=== PATIENT | female | born 1995 | race Caucasian/White ===

== ENCOUNTER 2017-11-24 18:02 | Emergency (ER) | payer OTHER ==
[~2017-11-24] VITALS: Ht 160 cm; Wt 61.1 kg
[2017-11-24 18:13] VITALS: TEMP 37; Ht 160 cm; Wt 61.1 kg
[2017-11-24] MEDS ORDERED: SODIUM CHLORIDE 0.9% 1000ML 1,000 ML IV STA (20:15)
[2017-11-24] MEDS ORDERED: BCPILLS PO (20:28)
[2017-11-24 20:44] VITALS: O2SAT 98
[2017-11-24 20:46] LABS: BASO % 0.3 %; BASO ABS # 0.02 K/uL (0-0.2); EOS % 1.5 %; EOS ABS # 0.11 K/uL (0-0.5); HEMATOCRIT 40.3 % (37-47); HEMOGLOBIN 13.5 g/dL (12.0-16.0); IG# 0.01 K/uL (0.00-0.02); LYMPH % 31.7 %; LYMPH ABS # 2.39 K/uL (1.2-3.4); MEAN CELL VOLUME 82.6 fL (80-100); MEAN CORPUSCULAR HEMOGLOBIN 27.7 pg (25-34); MEAN CORPUSCULAR HGB CONC 33.5 g/dl (32-36); MONO % 6.4 %; MONO ABS # 0.48 K/uL (0.11-0.59); NEUT ABS # 4.52 K/uL (1.4-6.5); PLATELET COUNT 265 K/uL (130-400); RED CELL DISTRIBUTION WIDTH CV 13.8 % (11.5-14.5); RED CELL DISTRIBUTION WIDTH SD 41.8 fL (36.4-46.3); WHITE BLOOD COUNT 7.53 K/uL (4.8-10.8)
[2017-11-24 21:06] LABS: BLOOD UREA NITROGEN 19 mg/dl (7-18); CALCIUM 9.2 mg/dl (8.5-10.1); CARBON DIOXIDE 25 mmol/L (21-32); CREATININE 0.64 mg/dl (0.60-1.20); GLUCOSE 80 mg/dl (70-99); POTASSIUM 3.8 mmol/L (3.5-5.1); SODIUM 135 mmol/L (136-145)
--- NOTE | 2017-11-24 21:10 | DIAGNOSTIC IMAGING REPORT ---
CHEST ONE VIEW PORTABLE CLINICAL HISTORY: Chest pain. COMPARISON STUDY: No previous studies for comparison. FINDINGS: Lung volumes are normal. There is no pneumothorax or pleural effusion. There is no consolidation. Cardiomediastinal silhouette is normal. Pulmonary vascularity is normal. IMPRESSION: No acute cardiopulmonary findings. Electronically signed by: Dougie Kwok M.D. 11/24/2017 9:08 PM Dictated Date/Time: 11/24/2017 9:08 PM
[2017-11-24] MEDS ORDERED: OPTIRAY 320 IV PRN (21:15)
--- NOTE | 2017-11-24 21:53 | DIAGNOSTIC IMAGING REPORT ---
CT ANGIOGRAPHY OF THE CHEST, PULMONARY EMBOLUS PROTOCOL CLINICAL HISTORY: Elevated d-dimer. Chest pain. COMPARISON STUDY: Chest radiograph performed earlier today. TECHNIQUE: Following IV administration of 94 mL of Optiray-320, helical axial images of the chest were obtained utilizing the pulmonary embolus protocol. Maximal intensity projections and sagittal and coronal reformats were viewed on an independent 3D workstation. IV contrast was administered without complication. A dose lowering technique was utilized adhering to the principles of ALARA. CT DOSE: 218.54 mGy.cm FINDINGS: No pulmonary emboli are identified although the segmental and subsegmental pulmonary arteries are suboptimally assessed due to respiratory motion. There is no thoracic aortic dissection. The size the heart is normal. There is no pericardial effusion. There are no enlarged thoracic lymph nodes. Central airways are patent. There is no consolidation. A few small left lower lobe nodules measure up to 3 mm. No pneumothorax or pleural effusion is noted. Central airways are patent. Bony thorax and upper abdomen are unremarkable. IMPRESSION: 1. No pulmonary emboli identified although segmental and subsegmental pulmonary arteries suboptimally assessed due to respiratory motion. 2. No consolidation. 3. A few tiny left lower lobe nodules which measure up to 3 mm. These are low suspicion and could reflect a mild infectious bronchiolitis. Electronically signed by: Dougie Kwok M.D. 11/24/2017 9:51 PM Dictated Date/Time: 11/24/2017 9:44 PM
--- NOTE | 2017-11-24 22:43 | EMERGENCY ROOM VISIT NOTE ---
History Report prepared by Jonathan: Shweta Fuller Under the Supervision of: Dr. Angelo Desir M.D. First contact with patient: 19:52 Chief Complaint: ABNORMAL LABS Stated Complaint: ABNORMAL LAB RESULTS,POSSIBLE BLOOD CLOT History of Present Illness The patient is a 22 year old female who presents to the Emergency Room with complaints of an episode of abnormal labs earlier today. The patient was sent to the ED after being found to have an elevated D dimer. She had gone to [facility] today because her heart rate is fast when she exercises. She has been experiencing this for a long time, but just decided to go to [facility] today. She also had a thyroid test at [facility] which was not concerning. She is not having any palpitations at rest. She denies any SOB, nausea, vomiting, leg swelling, abdominal pain, fever, chills, cough, or congestion. She has a history of ulcerative colitis. She is not having any problems with her UC currently. She traveled to [place] and back in the past week. The flights were 3 hours each. She denies any recent alcohol use. She denies any history of blood clots. She denies any family history of heart attacks at a young age. Source of History: patient Onset: earlier today Position: other (abnormal labs) Quality: other (elevated D dimer) Timing: other (episodic) Associated Symptoms: No fevers, No chills, No cough, No SOB, No nausea, No vomiting, No abdominal pain Review of Systems See HPI for pertinent positives and negatives. A total of ten systems were reviewed and were otherwise negative. Past Medical & Surgical Medical Problems: (1) Ulcerative colitis Family History Heart disease Hypertension No family history of heart attacks at a young age. Social History Smoking Status: Current Some Day Smoker Occupation Status: [employer] student Current/Historical Medications Scheduled Control Pills ( Control Pills), 1 TAB PO DAILY Allergies Coded Allergies: No Known Allergies (Unverified , 11/24/17) Physical Exam Vital Signs Date Time Temp Pulse Resp B/P (MAP) Pulse Ox O2 Delivery O2 Flow Rate FiO2 11/24/17 23:01 78 18 116/72 98 11/24/17 21:48 77 16 114/74 100 Room Air 11/24/17 21:00 75 16 110/65 98 Room Air NIBP 11/24/17 20:50 80 3/13/18 20:44 98 Room Air 11/24/17 19:50 65 18 124/76 100 Room Air 11/24/17 18:13 37.0 75 18 122/78 100 Room Air Physical Exam GENERAL: Awake, alert, well-appearing, in no distress HENT: Normocephalic, atraumatic. Oropharynx unremarkable. EYES: Normal conjunctiva. Sclera non-icteric. NECK: Supple. No nuchal rigidity. FROM. No JVD. RESPIRATORY: Clear to auscultation. CARDIAC: Regular rate, normal rhythm. Extremities warm and well perfused. Pulses equal. ABDOMEN: Soft, non-distended. No tenderness to palpation. No rebound or guarding. No masses. RECTAL: Deferred. MUSCULOSKELETAL: Chest examination reveals no tenderness. The back is symmetrical on inspection without obvious abnormality. There is no CVA tenderness to palpation. No joint edema. LOWER EXTREMITIES: Calves are equal size bilaterally and non-tender. No edema. No discoloration. NEURO: Normal sensorium. No sensory or motor deficits noted. SKIN: No rash or jaundice noted. Medical Decision & Procedures ER Provider Diagnostic Interpretation: Xray results as stated below per my and radiologist interpretation. Radiology results as stated below per my review and radiologist interpretation: CHEST ONE VIEW PORTABLE CLINICAL HISTORY: Chest pain. COMPARISON STUDY: No previous studies for comparison. FINDINGS: Lung volumes are normal. There is no pneumothorax or pleural effusion. There is no consolidation. Cardiomediastinal silhouette is normal. Pulmonary vascularity is normal. IMPRESSION: No acute cardiopulmonary findings. Electronically signed by: Dougie Kwok M.D. 11/24/2017 9:08 PM Dictated Date/Time: 11/24/2017 9:[address] ANGIOGRAPHY OF THE CHEST, PULMONARY EMBOLUS PROTOCOL CLINICAL HISTORY: Elevated d-dimer. Chest pain. COMPARISON STUDY: Chest radiograph performed earlier today. TECHNIQUE: Following IV administration of 94 mL of Optiray-320, helical axial images of the chest were obtained utilizing the pulmonary embolus protocol. Maximal intensity projections and sagittal and coronal reformats were viewed on an independent 3D workstation. IV contrast was administered without complication. A dose lowering technique was utilized adhering to the principles of ALARA. CT DOSE: 218.54 mGy.cm FINDINGS: No pulmonary emboli are identified although the segmental and subsegmental pulmonary arteries are suboptimally assessed due to respiratory motion. There is no thoracic aortic dissection. The size the heart is normal. There is no pericardial effusion. There are no enlarged thoracic lymph nodes. Central airways are patent. There is no consolidation. A few small left lower lobe nodules measure up to 3 mm. No pneumothorax or pleural effusion is noted. Central airways are patent. Bony thorax and upper abdomen are unremarkable. IMPRESSION: 1. No pulmonary emboli identified although segmental and subsegmental pulmonary arteries suboptimally assessed due to respiratory motion. 2. No consolidation. 3. A few tiny left lower lobe nodules which measure up to 3 mm. These are low suspicion and could reflect a mild infectious bronchiolitis. Electronically signed by: Dougie Kwok M.D. 11/24/2017 9:51 PM Dictated Date/Time: 11/24/2017 9:44 PM Laboratory Results 11/24/17 20:34 Red Blood Count 4.88, Mean Corpuscular Volume 82.6, Mean Corpuscular Hemoglobin 27.7, Mean Corpuscular Hemoglobin Concent 33.5, Mean Platelet Volume 10.0, Neutrophils (%) (Auto) 60.0, Lymphocytes (%) (Auto) 31.7, Monocytes (%) (Auto) 6.4, Eosinophils (%) (Auto) 1.5, Basophils (%) (Auto) 0.3, Neutrophils # (Auto) 4.52, Lymphocytes # (Auto) 2.39, Monocytes # (Auto) 0.48, Eosinophils # (Auto) 0.11, Basophils # (Auto) 0.02 11/24/17 20:34 Test 11/24/17 20:34 White Blood Count 7.53 K/uL (4.8-10.8) Red Blood Count 4.88 M/uL (4.2-5.4) Hemoglobin 13.5 g/dL (12.0-16.0) Hematocrit 40.3 % (37-47) Mean Corpuscular Volume 82.6 fL (80-100) Mean Corpuscular Hemoglobin 27.7 pg (25-34) Mean Corpuscular Hemoglobin Concent 33.5 g/dl (32-36) Platelet Count 265 K/uL (130-400) Mean Platelet Volume 10.0 fL (7.4-10.4) Neutrophils (%) (Auto) 60.0 % Lymphocytes (%) (Auto) 31.7 % Monocytes (%) (Auto) 6.4 % Eosinophils (%) (Auto) 1.5 % Basophils (%) (Auto) 0.3 % Neutrophils # (Auto) 4.52 K/uL (1.4-6.5) Lymphocytes # (Auto) 2.39 K/uL (1.2-3.4) Monocytes # (Auto) 0.48 K/uL (0.11-0.59) Eosinophils # (Auto) 0.11 K/uL (0-0.5) Basophils # (Auto) 0.02 K/uL (0-0.2) RDW Standard Deviation 41.8 fL (36.4-46.3) RDW Coefficient of Variation 13.8 % (11.5-14.5) Immature Granulocyte % (Auto) 0.1 % Immature Granulocyte # (Auto) 0.01 K/uL (0.00-0.02) Anion Gap 8.0 mmol/L (3-11) Est Creatinine Clear Calc Drug Dose 115.9 ml/min Estimated GFR () 148.9 Estimated GFR (Non- 128.5 BUN/Creatinine Ratio 29.5 (10-20) Calcium Level 9.2 mg/dl (8.5-10.1) Magnesium Level 2.2 mg/dl (1.8-2.4) Troponin I < 0.015 ng/ml (0-0.045) Human Chorionic Gonadotropin, Qual NEG (NEG) Laboratory results reviewed by me Medications Administered Medications (Trade) Dose Ordered Sig/Babatunde Route Start Time Stop Time Status Last Admin Dose Admin Sodium Chloride 1,000 ml @ 999 mls/hr Q1H1M STAT IV 11/24/17 20:15 11/24/17 21:15 DC 11/24/17 20:15 999 MLS/HR ECG Per My Interpretation Indication: palpitations Rate (beats per minute): 73 Rhythm: sinus with SA Findings: PVC (occasional), no acute ischemic change, other (short MT, normal axis) ED Course 2001: The patient was evaluated in room A3. A complete history and physical exam was performed. 2015: Sodium Chloride 1000 ml @ 999 mls/hr IV. 2218: I reevaluated the patient. She is feeling well. Discussed results and discharge instructions: She verbalized understanding and agreement. The patient is ready for discharge. Medical Decision I reviewed the patient's past medical history, medications, and the nursing notes as described above. Differential diagnosis: Etiologies such as premature contractions, electrolyte abnormality, cardiac dysrhythmia, thyroid dysfunction, pulmonary embolism, infection, gastrointestinal, as well as others were entertained. The patient is a 22 yo woman who presents to the emergency department referred by S after having outpatient labs that demonstrated an elevated D-dimer which was ordered after patient expressed concern for rapid HR during exercise, which has been occurring over the past year. On arrival the patient is well-appearing and denies any sx, AFVSS. EKG with short MT interval but otherwise unremarkable. Labs unremarkable. CT-PE negative for PE. Patient continues to be asymptomatic. Findings and plan for follow-up reviewed with patient. Patient agreeable and d/c'd per discharge instructions. Medication Reconcilliation Current Medication List: was personally reviewed by me Blood Pressure Screening Patient's blood pressure: Normal blood pressure Blood pressure disposition: Did not require urgent referral Impression Primary Impression: Elevated d-dimer Additional Impression: Palpitations Scribe Attestation The scribe's documentation has been prepared under my direction and personally reviewed by me in its entirety. I confirm that the note above accurately reflects all work, treatment, procedures, and medical decision making performed by me. Departure Information Dispostion Home / Self-Care Referrals No Doctor, Assigned (PCP) Patient Instructions ED Palpitations, My [facility] Additional Instructions Please follow up with [facility] in the next 1-3 days for re-evaluation and possible holter monitor or cardiology referral. The cause of your symptoms are unclear at this time. Otherwise, your exam, EKG, chest xray, lab results, and CT scan did not show signs of an emergent condition at this time. Drink plenty of fluids to ensure hydration. Return to the emergency department for worsening symptoms as described in the accompanying instructions. You did have any incidental pulmonary nodule on your CT scan that should be reviewed with your doctor. ------- CT ANGIOGRAPHY OF THE CHEST, PULMONARY EMBOLUS PROTOCOL CLINICAL HISTORY: Elevated d-dimer. Chest pain. COMPARISON STUDY: Chest radiograph performed earlier today. TECHNIQUE: Following IV administration of 94 mL of Optiray-320, helical axial images of the chest were obtained utilizing the pulmonary embolus protocol. Maximal intensity projections and sagittal and coronal reformats were viewed on an independent 3D workstation. IV contrast was administered without complication. A dose lowering technique was utilized adhering to the principles of ALARA. CT DOSE: 218.54 mGy.cm FINDINGS: No pulmonary emboli are identified although the segmental and subsegmental pulmonary arteries are suboptimally assessed due to respiratory motion. There is no thoracic aortic dissection. The size the heart is normal. There is no pericardial effusion. There are no enlarged thoracic lymph nodes. Central airways are patent. There is no consolidation. A few small left lower lobe nodules measure up to 3 mm. No pneumothorax or pleural effusion is noted. Central airways are patent. Bony thorax and upper abdomen are unremarkable. IMPRESSION: 1. No pulmonary emboli identified although segmental and subsegmental pulmonary arteries suboptimally assessed due to respiratory motion. 2. No consolidation. 3. A few tiny left lower lobe nodules which measure up to 3 mm. These are low suspicion and could reflect a mild infectious bronchiolitis. Electronically signed by: Dougie Kwok M.D. 11/24/2017 9:51 PM Problem Qualifiers
[2017-11-24 23:01] VITALS: BP 116/72; PULSE 78; O2SAT 98
== END 2017-11-24 23:01 | disposition home or self-care (01) ==
LOC: C.EDB 18:05 → C.EDA 23:01
DX: R00.2 Palpitations (principal); R79.89 Other specified abnormal findings of blood chemistry; K51.90 Ulcerative colitis, unspecified, without complications; F17.200 Nicotine dependence, unspecified, uncomplicated; Z79.3 Long term (current) use of hormonal contraceptives; Z82.49 Family history of ischemic heart disease and other diseases of the circulatory system